=== PATIENT | female | born 1975 | race Two or more races ===

== ENCOUNTER 2024-10-27 05:50 | Day surgery (SDC) | payer OTHER, SELFPAY ==
--- NOTE | 2024-10-26 07:00 | EKG_ITS ---
[facility] Test Date: 2024-10-26 Pat Name: BINDU CHAVEZ Department: Room: - Gender: Female Community Representative: ELENA : 1975 Requested By: Bernabe Viramontes Order Number: [id number] Reading MD: Bernabe Viramontes Measurements Intervals Mcgregor Rate: 61 P: 20 VT: 148 QRS: 28 QRSD: 118 T: 20 QT: 413 QTc: 418 Interpretive Statements SINUS RHYTHM INDETERMINATE AXIS MODERATE INTRAVENTRICULAR CONDUCTION DELAY No previous ECG available for comparison /[email or web address]/[id number]
[2024-10-26 09:30] VITALS: BMI 31.1
[2024-10-26 11:02] LABS: HCG Qualitative,Urine Negative
[2024-10-26 11:36] LABS: Thyroid Stimulating Hormone 0.46 uIU/mL (0.55-4.78)
--- NOTE | 2024-10-26 15:59 | SUR.PREOP ---
Pt notified to come in at 0545 tomorrow for surgery
[2024-10-27] VITALS (7 sets, daily range): BP systolic 117–135; BP diastolic 66–90; PULSE 63–77; RESP 15–17; TEMP 36.2–36.6; O2SAT 96–100; BMI 30.7
[2024-10-27] MEDS: OXYMETAZOLINE NAS SPRY 0.05% 15 ML BTL 3 SPRAY NASAL (06:49)
[2024-10-27] MEDS: RINGERS LACTATED 1000 ML 1,000 ML 20 ML IV (06:54)
--- NOTE | 2024-10-27 08:28 | PD.SUROPNT ---
Date of Procedure 10/27/24 Pre Op Diagnosis Nasal septal deviation with obstruction Bilateral inferior turbinate hypertrophy Post Op Diagnosis Nasal septal deviation with obstruction Bilateral inferior turbinate hypertrophy Procedure Intranasal septoplasty Bilateral submucous resection of inferior turbinates Findings Grade 3 septal deviation to the right with spurring along the floor and enlarged inferior turbinates Procedure Description Indications this is a 49-year-old female with above findings and chronic nasal congestion refractory to medical therapy. Treatment options were discussed including surgical risk bleeding infection nasal deformity potential need for further surgery. She understands this and wishes to proceed. Anticipated outcomes were discussed as well. Patient was transferred to the operative suite where she was anesthetized and intubated. Timeout was performed. Patient was sterilely draped. Nasal septum as well as the inferior turbinates were injected with 1% lidocaine with 1 100,000 Efren epinephrine. Approximately 5 cc total used. A caudal rim incision was made on the left side of the septum mucosal flap elevated off the septal cartilage and bone. Inferior tunnel was created as well. Perpendicular plate was from the quadrangular cartilage and mucosal flap elevated off the right side. Double-action scissors were used to incise the perpendicular plate and bony fragments removed with a Ashley forceps. Large spur inferiorly was fractured over the caudal elevator and then removed with a Ashley forceps. This allowed the septum to return near midline. Mucosal flaps were then reapproximated to the underlying cartilage with a 4-0 plain gut suture in a quilting type stitch. This was used to close the rim incision as well. Inferior turbinates were then reduced in submucosal plane with a 2.9 mm turbinate shaver blade. Dissection was performed on insertion and withdrawal. The left side was performed first followed by the right side. Entry sites were then cauterized with suction cautery. Patient tolerated procedure well was awakened and taken the recovery room in stable condition Anesthesia GETA Pathology / specimen None Estimated Blood Loss 5 Surgeon Bernabe Rodarte DO Surgical Staff Operation Date: 10/27/24 07:45 Case Staff Anesthesiologist: Donovan Saravia
--- NOTE | 2024-10-27 08:29 | SUR.PHASEI ---
pt received from OR in recovery bay 1. pt asleep but responds to voice, breathing unlabored on oxymask 6l. v/s stable. pt dressing nasal bridle cdi. report received from Dr. Saravia and Santiago VILLALTA.
[2024-10-27] MEDS: ACETAMINOPHEN IVPB 1,000 MG/100 ML VIAL 250 MG IV (08:45)
--- NOTE | 2024-10-27 08:48 | SUR.PHASEI ---
pt able to tolerate oral fluids without difficulty swallowing or nausea/vomiting.
--- NOTE | 2024-10-27 09:46 | SUR.PHASEII ---
pt awake and alert, breathing unlabored on room air. v/s stable. pt dressing to nasal area scant blood noted. pt able to ambulate to wheelchair with steady gait. d/c instructions given with friend Kerry over the phone (child presence) and pt in room all questions answered. pt d/c via wheelchair with all belongings.
== END 2024-10-27 09:46 | disposition home or self-care (01) ==
PROVIDERS: PCP Physician Assistant; Referring Provider Otolaryngology; Visit Provider Otolaryngology
PROC: (CPT 30520; principal; 2024-10-27 07:30)
DX: J34.2 Deviated nasal septum (principal); J34.3 Hypertrophy of nasal turbinates; Z01.810 Encounter for preprocedural cardiovascular examination
CPT/HCPCS: 30520; 30130; 36415; 81025; 84443; 93005; A4217; A4649; J0131; J0690; J1100; J1885; J2250; J2405; J2704; J3010; J3490; J7040; J7120; A9270